=== PATIENT | male | born 2000 | race Caucasian/White ===

== ENCOUNTER 2022-01-18 15:18 | Emergency (ER) | payer OTHER ==
[~2022-01-18] VITALS: Ht 180.3 cm; Wt 54.4 kg
== END 2022-01-18 17:34 | disposition home or self-care (01) ==
LOC: ER 15:18
DX: H93.8X2 Other specified disorders of left ear (principal); H60.12 Cellulitis of left external ear

== ENCOUNTER 2023-10-11 12:31 | Emergency (ER) | payer OTHER ==
[~2023-10-11] VITALS: Ht 170.2 cm; Wt 59.0 kg
[2023-10-11 14:36] LABS: HEMATOCRIT 37.4 % (39.0-48.0); HEMOGLOBIN 12.5 g/dL (13-16.00); MEAN CELL VOLUME 92.4 fL (80.0-100.00); MEAN CORPUSCULAR HGB CONC 33.5 g/dl (32.0-36.0); PLATELET COUNT 198 K/uL (150-450); RED BLOOD COUNT 4.05 M/uL (4.00-6.00); RED CELL DISTRIBUTION WIDTH 13.4 % (11.5-14.5)
== END 2023-10-11 17:17 | disposition home or self-care (01) ==
LOC: ER 12:31
PROVIDERS: General Practice
DX: J00 Acute nasopharyngitis [common cold] (principal); J06.9 Acute upper respiratory infection, unspecified; J32.9 Chronic sinusitis, unspecified; Z20.822 Contact with and (suspected) exposure to COVID-19